=== PATIENT | female | born 1985 | race Caucasian/White ===

== ENCOUNTER 2019-02-26 07:41 | Outpatient (CLI) | payer OTHER, SELFPAY ==
[2019-02-26 08:24] LABS: HCT 38.3 % (36.0-46.0); HGB 12.5 g/dL (12.0-15.5); Mean Corp. HGB Concentration 32.6 g/dL (32.0-36.0); Mean Corpuscular Hemoglobin 27.1 pg (27.0-33.0); Mean Corpuscular Volume 82.9 fL (80-95); Mean Platelet Volume 10.1 fL (8.0-11.0); Platelet Count 288 x1000/uL (130-400); RBC 4.62 m/cumm (4.00-5.20); RBC Distribution Width 14.8 % (11.7-14.6); White Blood Cell Count 7.56 k/cumm (4.4-10.8)
[2019-02-26 09:19] LABS: ALT 27 U/L (12-78); AST 13 U/L (15-37); Albumin 3.8 g/dL (3.4-5.0); Alkaline Phosphatase 80 U/L (46-116); Anion Gap 12.3 mmol/L (3-11); BUN 10 mg/dL (7-18); Bilirubin, Total 0.3 mg/dL (0.2-1.0); CO2 24.7 mmol/L (21.0-32.0); CREATININE 0.81 mg/dL (0.55-1.02); Calcium 8.9 mg/dL (8.5-10.1); Chloride 103 mmol/L (98-107); Cholesterol 150 mg/dL (50-200); Glucose 92 mg/dL (70-100); HDL Cholesterol 31 mg/dL (40-60); LDL CHOLESTEROL 81 mg/dL (<100); Potassium 4.1 mmol/L (3.5-5.1); Sodium 140 mmol/L (136-145); TSH (W/Ref FT4) 1.94 uIU/mL (0.358-3.74); Triglyceride 258 mg/dL (30-150)
== END 2019-02-26 08:01 ==
PROVIDERS: PCP Registered Nurse; Visit Provider Registered Nurse
DX: Z00.00 Encounter for general adult medical examination without abnormal findings (principal); R53.83 Other fatigue
CPT/HCPCS: 36415; 80053; 80061; 83721; 85027; 84443

== ENCOUNTER 2020-12-08 20:30 | Outpatient (REF) | payer BC, SELFPAY ==
[2020-12-11 15:28] LABS: Chlamydia Result Negative (Negative); GC Result Negative (Negative)
== END 2020-12-08 20:31 | disposition home or self-care (01) ==
LOC: NCHCN 20:30
PROVIDERS: PCP Registered Nurse; Visit Provider Registered Nurse
DX: Z11.3 Encounter for screening for infections with a predominantly sexual mode of transmission (principal); Z00.00 Encounter for general adult medical examination without abnormal findings
CPT/HCPCS: 87491; 87591

== ENCOUNTER 2020-12-14 08:18 | Outpatient (REF) | payer BC, SELFPAY ==
[2020-12-14 14:06] LABS: HCT 36.5 % (36.0-46.0); HGB 11.9 g/dL (11.2-15.7); MCH 27.9 pg (27.0-33.0); MCHC 32.6 % (32.0-36.0); MCV 85.7 fL (80-95); MPV 11.3 fL (8.0-11.0); Platelet Count 266 10^3/uL (130-400); RBC 4.26 10^6/uL (3.93-5.22); RDW-SD 40.5 fL; WBC 6.87 10^3/uL (4.4-10.8)
[2020-12-14 14:21] LABS: Iron 79 ug/dL (50-170)
[2020-12-14 14:42] LABS: Vitamin D 25 Total 30.4 ng/ml (30-100)
[2020-12-14 14:48] LABS: Ferritin 60 ng/mL (8-252); Vitamin B12 372 pg/mL (193-986)
[2020-12-15 09:12] LABS: Parathyroid Hormone,Intact 34 pg/mL (19-88)
[2020-12-19 19:58] LABS: Thiamine (Vitamin B1), WB 125 nmol/L (70-180)
== END 2020-12-14 08:19 | disposition home or self-care (01) ==
LOC: LBN 08:18
PROVIDERS: PCP Registered Nurse; Visit Provider Physician Assistant
DX: E66.01 Morbid (severe) obesity due to excess calories (principal); Z98.84 Bariatric surgery status
CPT/HCPCS: 82306; 85027; 82310; 82607; 82728; 83540; 83970; 84425

== ENCOUNTER 2021-08-15 15:42 | Outpatient (REF) | payer OTHER, SELFPAY ==
--- OUTSIDE RECORDS SUMMARY | 2021-08-15 15:47 | XMS_ITS ---
:1985 Author Care Team Providers Name Role Phone [facility] Primary Care Provider [phone] [facility]DE[facility] Primary Care Provider [phone] Allergies Code Code System Name Reaction Severity Status Onset NKDA ? Medications Name Status Start Date Stop Date ? ? apple cider vinegar 300 mg tablet Active ? Not available Take 1 tablet by oral route. Cinnamon 500 mg capsule Active ? Not avai lable Take 2 capsules by oral route. Daily Fiber 0.52 gram capsule Active ? No t available Take 1 capsule every day by oral route. folic acid 1 mg tablet Active ? Not avail able Take 1 tablet every day by oral route. Garcinia Cambogia 200 mcg-500 mg tablet Active ? Not available Take 1 tablet every day by oral route. hydroxyzine HCl 25 mg tablet Active ? Not available Take 1 tablet as needed by oral route. melatonin 5 mg tablet Active ? Not availa ble Take 1 tablet every day by oral route for 30 days. Multi Vitamin Active ? Not available Nexplanon 68 mg subdermal implant Active ? Not available Inject by subcutaneous route. Prozac 40 mg capsule Active ? Not availab le Take 1 capsule every day by oral route. simvastatin 20 mg tablet Active ? Not cathy ilable Take 1 tablet every day by oral route. Problems Name Status Onset Date Source ? Mixed Anxiety and Depressive Disorder Active 07/14/2018 ? Smoker Active 07/14/2018 ? Migraine Active 07/14/2018 ? Asthma Active 07/14/2018 ? Celiac Disease Active 07/14/2018 ? Polycystic Ovaries Active 07/14/2018 ? Obstructive Sleep Apnea Syndrome Active ? ? Procedures None recorded. Results Lab Results Date Name Specimen Result Interpretation Description Value Range Status Address ? 03/23/2018 Tb (M - quantiferon-TB negative negative Final [place] [facility] [place] [facility] [place], Result [facility] Blood (Internal) : [address] ? ? - TB1 Ag minus 0.05 ? Final [facility] Nil Result IU[facility] [address] ? ? - TB2 Ag minus 0.04 ? Final [place] [facility] Nil Result [facility] : [address] ? ? - Mitogen minus >10.00 ? Final No rth Nil Result [facility] : [address] ? ? - Nil Result 0.02 ? Final [place] IU[facility] : [address] Past Encounters None recorded. Social History Tobacco Smoking Status Current Every Day Smoker Notes: 1/ 2 ppd for 10 yrs Vaccine List Vaccine Type COVID-19, mRNA, LNP-S, PF, 100 mcg/0.5 m L dose (Moderna) 10/09/2020?0.5 mL 11/08/2020?100 mcg influenza, injectable, quadrivalent 07/28/2018 MMR 12/06/1987 12/06/1997 12/05/2011 Tdap 02/22/2011 Notes: varicella titer positive 11/15/2011; hepatitis B titer positive 01/06/2014 Plan of Care Reminders Provider Appointments None ? ? recorded. Lab None ? ? recorded. Referral None ? ? recorded. Procedures None ? ? recorded. Surgeries None ? ? recorded. Imaging None ? ? recorded. Vitals Height Weight BMI Blood Pressure 158.75 cm 98.2 kg 39 kg/m2 128/92 mm[Hg]
[2021-08-16 08:11] LABS: Albumin 4.1 g/dL (3.4-5.0); Alkaline Phosphatase 44 U/L (46-116); BUN 13 mg/dL (7-18); Bilirubin, Total 0.4 mg/dL (0.2-1.0); CREATININE 0.7 mg/dL (0.55-1.02); Calcium 9.1 mg/dL (8.5-10.1); Glucose 75 mg/dL (74-106); Potassium 3.9 mmol/L (3.5-5.1); Sodium 144 mmol/L (136-145); Total Protein 6.9 g/dL (6.4-8.2)
[2021-08-16 08:12] LABS: ALT 18 U/L (14-59); AST 10 U/L (15-37); Chloride 106 mmol/L (98-107); TSH 0.98 uIU/mL (0.36-3.74)
== END 2021-08-15 15:43 | disposition home or self-care (01) ==
LOC: NCHCN 15:42
PROVIDERS: PCP Registered Nurse; Visit Provider Registered Nurse
DX: R53.83 Other fatigue (principal); E66.01 Morbid (severe) obesity due to excess calories; Z90.3 Acquired absence of stomach [part of]
CPT/HCPCS: 80053; 84443